=== PATIENT | female | born 1975 | race Caucasian/White ===

== ENCOUNTER 2018-11-25 05:14 | Inpatient (IN) ==
--- NOTE | 2018-10-28 12:58 | PAT Medication Instructions ---
Medication Instructions Date of Service October 28, 2018 Home Medications Calcium 600 + D(3) 1 cap PO BID aspirin 81 mg PO QAM lansoprazole [Prevacid] 30 mg PO DAILY PRN loratadine [Claritin] 10 mg PO DAILY PRN venlafaxine [Effexor XR] 150 mg PO QAM etodolac [Lodine] 500 mg PO BID metoprolol tartrate 25 mg PO BID ropinirole 0.25 mg PO HS ASK your surgeon for instructions etodolac [Lodine] 500 mg PO BID STOP taking 24 hours before surgery ropinirole 0.25 mg PO HS DO NOT take the morning of surgery Calcium 600 + D(3) 1 cap PO BID loratadine [Claritin] 10 mg PO DAILY PRN Take morning of surgery With a small sip of water, OTHERWISE NOTHING TO EAT OR DRINK AFTER MIDNIGHT: aspirin 81 mg PO QAM lansoprazole [Prevacid] 30 mg PO DAILY PRN (if needed) venlafaxine [Effexor XR] 150 mg PO QAM metoprolol tartrate 25 mg PO BID Take evening before surgery Calcium 600 + D(3) 1 cap PO BID metoprolol tartrate 25 mg PO BID Other Notes If you have any questions please call us at [phone] or [phone] or [phone] or [phone]
--- NOTE | 2018-10-29 14:42 | Anesthesiology Consultation ---
Date of Service October 29, 2018 Assessment & Plan (1) Encounter for pre-operative examination: - Cardio: 10/12/18: "low to intermediate risk" - S/P right femoral locking screw: 05/05/18: LMA#4 at [facility] - Okay to continue ASA perioperatively. Chart Review Chart Review: Acceptable Risk for Surgery and Patient seen in Pre Admission Testing Teaching & Discussion Pre-Anesthesia Teaching/Discussion Notes: Instructed NPO after midnight before surgery,except medications with 15 cc of water. Medication instructions provided according to the PAT guidelines. History Surgery Operation Date: 11/25/18 07:00 Proposed Procedures p Right Total Knee Arthroplasty, - Lc Lopez MD s Removal IM Pete of Right Femur - Lc Lopez MD Height/Weight Height: 5 ft 8 in Weight: 86.6 kg Allergies Allergy/AdvReac Type Severity Reaction Status Date / Time cefazolin Allergy Intermediate HIVES Verified 10/28/18 07:46 codeine Allergy Intermediate ITCHING - Verified 10/28/18 07:46 CAN USE PERCOCET W/O RXN vancomycin Allergy Intermediate "ITCHY Verified 10/28/18 07:46 Head" Medications Home Medications Medication Instructions Recorded Confirmed Last Taken Calcium 600 + D(3) 1 cap PO BID 04/03/18 10/28/18 Unknown aspirin 81 mg PO QAM 04/03/18 10/28/18 04/30/18 lansoprazole [Prevacid] 30 mg PO DAILY PRN 04/03/18 10/28/18 Unknown loratadine [Claritin] 10 mg PO DAILY PRN 04/03/18 10/28/18 Unknown venlafaxine [Effexor XR] 150 mg PO QAM 04/03/18 10/28/18 05/04/18 etodolac [Lodine] 500 mg PO BID 10/28/18 10/28/18 Unknown metoprolol tartrate 25 mg PO BID 10/28/18 10/28/18 Unknown ropinirole 0.25 mg PO HS 10/28/18 10/28/18 Unknown Past Medical History Medical History Anxiety Attention deficit disorder (ADD) Deep vein thrombosis LLE DVT (2016) - S/P XARELTO X 6 MONTHS - FELT 2/2 OCP/SMOKING Degenerative disc disease Depression Diverticular disease Endometriosis GERD (gastroesophageal reflux disease) CONTROLLED Hepatitis C Hiatal hernia History of hyperlipidemia History of hypertension History of migraine Hx of tear of meniscus of knee joint LEFT KNEE IBS (irritable bowel syndrome) Osteoarthritis Post traumatic stress disorder Scoliosis Exercise / Class Metabolic Activity II 4-5 Yardwork/Stairs/Walk up hill Past Family History Family History Mother Family history of diabetes mellitus Grandmother Family history of diabetes mellitus Grandmother Family hx of colon cancer Past Surgical History Surgical History History of arthroscopy LEFT KNEE - MENISCUS REPAIR History of bilateral tubal ligation History of cholecystectomy History of colonoscopy History of hip surgery LEFT HIP - AN AND THEN AGAIN AT AGE 21 History of knee surgery RIGHT KNEE History of total hip arthroplasty LEFT Status post osteotomy RLE; HARDWARE PRESENT Past Anesthesia History No Hx of Anesthesia Complications and No Family Hx of Anesthesia Complications History of PONV No Hx of PONV and No Hx of Motion Sickness Social History Smoking Status: Current every day smoker tobacco type: cigarettes Smoking cigarettes per day: 1/2-1 PPD X30 YEARS Do You Dip or Chew Tobacco: No Hx Alcohol Use: No Alcohol Intake Frequency Comment: 0 Hx Substance Use: No substance use type: does not use Review of Systems Patient denies chest pain, shortness of breath, dyspnea on exertion, cough, wheezing, palpitations. Physical Exam Vital Signs VITALS BP 124/90 P 76 TEMP 98.2 SP02 100%RA RESP 18 PHYSICAL Full neck and c-spine range of motion. Full TMJ range of motion. TMD 3 finger breaths Mallampati Score 2 Dentition: poor dentition, lower front teeth present/rotted, upper front teeth chipped Lungs: clear throughout to auscultation Cardiac: regular rate and rhythm, no murmurs noted Spine: normal Carotid arteries: negative bruit Extremities: no edema Testing Laboratory Results 10/29/18 14:41 10/29/18 14:41 10/29/18 10/29/18 14:41 Unknown PT 10.0 INR 1.0 APTT 24.2 Urine Color Yellow Urine Appearance Clear Urine pH 5.5 Ur Specific Peggs 1.010 Urine Protein Negative Urine Glucose (UA) Negative Urine Ketones Negative Urine Nitrite Negative Ur Leukocyte Esterase 2+ H Urine WBC (Auto) 10-30 H Urine RBC (Auto) 0-4 U Hyaline Cast (Auto) 1-5 U Epithel Cells (Auto) >30 H Urine Bacteria (Auto) Negative 10/29/18 T&S A-Ab- Electrocardiogram Date: 10/12/18 SR at 83bpm. Chest X-Ray Date: 10/28/18 Findings: + NAD Echocardiogram Date: 04/28/18 EF 55%. No RWMA. Mild MR. Trace to mild AI. Stress Test Date: 04/28/18 Type: exercise Negative exercise graded test for ischemia. 87% MPHR. Sinus tachy with stress with no significant ST/T change. 10.1 METS.
[2018-10-29 15:22] LABS: Basophils # (auto) 0.01 K/uL (0-0.2); Basophils % (auto) 0.1 %; Eosinophils # (auto) 0.09 K/uL (0-0.5); Eosinophils % (auto) 1.1 %; Hematocrit (blood only) 40.6 % (37-47); Hemoglobin 13.5 g/dL (12.0-16.0); Immature Granulocytes # (auto) 0.01 K/uL (0.00-0.02); Immature Granulocytes % (auto) 0.1 %; Lymphocytes # (auto) 2.42 K/uL (1.2-3.4); Lymphocytes % (auto) 30.5 %; Mean Corpuscular Hgb Conc 33.3 g/dL (32-36); Mean Corpuscular Volume 91.4 fL (80-100); Mean Platelet Volume 9.7 fL (7.4-10.4); Monocytes # (auto) 0.71 K/uL (0.11-0.59); Neutrophils # (auto) 4.69 K/uL (1.4-6.5); Neutrophils % (auto) 59.2 %; Platelet Count 332 K/uL (130-400); RDW Coefficient of Variation 14.2 % (11.5-14.5); RDW Standard Deviation 47.5 fL (36.4-46.3); Red Blood Count 4.44 M/uL (4.2-5.4); White Blood Count 7.93 K/uL (4.8-10.8)
[2018-10-29 15:30] LABS: BUN Creatinine Ratio 10.8 (10-20); Calcium 9.2 mg/dl (8.5-10.1); Creatinine Clr Calc Pharmacy 101.9 ml/min; Est GFR (African American) 101.6; Est GFR (Non-African American) 87.6; Potassium 3.8 mmol/L (3.5-5.1)
[2018-10-29 15:34] LABS: Partial Thromboplastin Ratio 0.9; Partial Thromboplastin Time 24.2 Seconds (21.0-31.0)
[2018-10-29 15:34] LABS: Appearance Urine Clear (Clear); Bacteria Urine Automated Negative (Negative); Bilirubin Urine Negative (Negative); Blood Urine Negative (Negative); Color Urine Yellow; Epithelial Cell Urine Auto >30 /lpf (0-5); Glucose Urine UA Negative (Negative); Ketones Urine Negative (Negative); Leukocyte Esterase Urine 2+ (Negative); Nitrite Urine Negative (Negative); Protein Urine Negative (Negative); RBC Urine Automated 0-4 /hpf (0-4); Urobilinogen Urine Negative (Negative); pH Urine 5.5 (4.5-7.5)
--- NOTE | 2018-11-15 17:34 | History and Physical Report ---
DATE OF ADMISSION: 11/25/2018 CHIEF COMPLAINT: Right knee pain. HISTORY OF PRESENT ILLNESS: This 43-year-old white female presents to the office with complaints of severe right knee pain that has been ongoing for several years. It has become worse over the last 6 months. She has known DJD. She previously had a right femur osteotomy in 2009. She subsequently had a distal screw removal from the right femur. She also had a proximal screw removal from the right femur on 04/14/2018. Pain is worse with ambulation. It is affecting her ADLs. She has a history of previous congenital hip dysplasia and degenerative joint disease in both knees. There is a history of numerous surgeries on both lower extremities. She elects to proceed with removal of the IM eric and total knee arthroplasty in hopes of alleviating her pain. Recent radiographic imaging has been obtained. No numbness or tingling. PAST MEDICAL HISTORY: Significant for hypertension, asthma, sleep apnea, anxiety, depression, ADHD, history of DVT in March 2017, osteoarthritis, upper and lower back problems, acid reflux, history of hiatal hernia, irritable bowel syndrome, history of hepatitis, and endometriosis. PREVIOUS SURGERIES: Proximal femur screw removal on 04/14/2018, distal screw removal right femur, left total hip arthroplasty in 2003, right femur osteotomy in 2009, left knee arthroscopy, lateral release, with meniscectomy in 2010, excision of medial patellar avulsion fracture and repair of MPFL in 2010, right knee surgery at age 11, cholecystectomy, hysterectomy, tubal ligation. SOCIAL HISTORY: The patient smokes a pack a day. No ETOH use. No recreational drug use. Single. Lives with her children. ALLERGIES: KNOWN ALLERGY TO ANCEF, WHICH CAUSED HIVES; VANCOMYCIN, WHICH CAUSED SEVERE ITCHING; AND CODEINE, WHICH ALSO CAUSED HIVES. SHE DOES FINE WITH PERCOCET. CURRENT MEDICATIONS: Effexor 75 mg p.o. daily, etodolac 500 mg p.o. b.i.d., loratadine 10 mg p.o. daily, metoprolol 25 mg p.o. daily, metronidazole 500 mg p.o. q. 12 hours, ropinirole 0.5 mg p.o. daily. FAMILY HISTORY: Significant for cancer, diabetes, and heart disease. REVIEW OF SYSTEMS: A total 10 systems are reviewed and are significant for above-stated conditions only. PHYSICAL EXAMINATION: GENERAL: Well-developed, well-nourished, middle-aged white female in no acute distress. Sitting in a chair. Alert and oriented. Looks older than her stated age. SKIN: Warm and dry with good turgor. No rashes or lesions. Scars present on both knees. Weight is approximately 190 pounds. HEENT: Normocephalic, atraumatic. EYES: PERRLA, EOMI. Nares patent bilaterally without turbinate enlargement. Oropharynx without erythema or exudate. No lesions noted. Uvula midline. Oral mucosa moist. Poor dentition. Several teeth are missing. Several chipped teeth as well. LUNGS: Clear to auscultation bilaterally. No crackles, rhonchi, or wheezing. Good air movement. HEART: RRR. No MGR. ABDOMEN: Bowel sounds present x4, soft, nontender. No organomegaly. No masses. Mild obesity. MUSCULOSKELETAL: Right knee evaluation reveals no intra-articular effusion. She has full terminal extension. Flexion to only around 100 degrees. There is pain with palpation of the lateral joint line as well as the peripatellar area. Crepitus palpable with motion. Stable collateral ligaments. No defect in the patellar tendon or quadriceps tendon. Ambulatory with an antalgic gait. Valgus alignment. NEUROLOGIC: Gross sensation is intact across both lower extremities by soft touch. Peripheral pulses are 2+. Cranial nerves II-XII are intact. DATA: Radiographic imaging previously obtained shows severe DJD of her right knee. She does have a retained IM eric. Periarticular osteophytes, subchondral sclerosis, and joint space narrowing are all present. IMPRESSION: Right knee osteoarthritis with retained IM eric. PLAN: Postoperative prescriptions for Percocet and Coumadin will be provided at discharge from the hospital. Anticipate discharge to home with outpatient services or home health services. Rolling walker prescription has been provided. Preoperative lab work, EKG, and chest x-ray have been ordered. Medical clearance has been requested from both her PCP as well as her hand spring repairer, Dr. Dent. Informed written consent will be obtained the morning of surgery.
[2018-11-25] MEDS ORDERED: LACTATED RINGER'S 1,000 ML IV SCH (06:00)
[2018-11-25] MEDS ORDERED: ROPIVACAINE 0.5% HCL/PF 150 MG, BUPIVACAINE 0.5% MPF 30 ML, EPINEPHrine 0.15 MG, Ketoro... INFIL SCH (06:00)
[2018-11-25] MEDS ORDERED: CLINDAMYCIN 900 MG / 50ML D5W IV SCH (06:00)
[2018-11-25] MEDS ORDERED: levoFLOXacin 500 MG TAB PO ONE (06:00)
[2018-11-25] MEDS ORDERED: TRANEXAMIC ACID 1,000 MG x 1 **For Topical Use TOP SCH (06:00)
[2018-11-25] MEDS ORDERED: LR 500ML BOLUS, THEN 15ML/HR IV SCH (06:00)
[2018-11-25] MEDS ORDERED: BUPIVACAINE/EPINEPHRINE 0.5% MPF 1:200,000 30 ML VIAL ONE (06:21)
[2018-11-25] MEDS ORDERED: DEXAMETHASONE SOD INJ 4 MG/ML VIAL ONE (06:22)
[2018-11-25] MEDS ORDERED: BUPIVACAINE 0.5 % 5 MG/1 ML PF 10ML VIAL ONE (06:23)
[2018-11-25] MEDS ORDERED: ORTHO JOINT ANESTHETIC ONE (06:34)
--- NOTE | 2018-11-25 06:37 | History & Physical Bridge Note ---
Date of Service November 25, 2018 History & Physical Bridge Note I have examined the patient, reviewed the History & Physical and in the interval since the performance of the History & Physical I have noted the following changes of clinical significance: consent obtained.no changes noted
[2018-11-25] MEDS ORDERED: MIDAZOLAM HCL 1 MG/ML 2ML VIAL ONE ×2 (06:40→06:56)
[2018-11-25] MEDS ORDERED: ePHEDrine sulfate 50 MG/ML AMP IV PRN (07:03)
[2018-11-25] MEDS ORDERED: ATROPINE SULFATE 0.1 MG/ML 10ML SYR IV PRN (07:03)
[2018-11-25] MEDS ORDERED: fentaNYL citrate 100 MCG/2 ML VIAL IV PRN (07:03)
[2018-11-25] MEDS ORDERED: ONDANSETRON INJ 2 MG/ML 2 ML VIAL IV PRN ×2 (07:03→10:54)
[2018-11-25] MEDS ORDERED: KETAMINE HCL INJ 50 MG/ML 10 ML VIAL ONE (07:12)
[2018-11-25] MEDS ORDERED: LIDOCAINE HCL 2% 2 ML VIAL/AMP(20MG/ML) INFIL ONE (07:35)
[2018-11-25] MEDS ORDERED: PROPOFOL IV EMULSION 10 MG/ML 20 ML VIAL IV ONE ×3 (07:35→08:35)
--- NOTE | 2018-11-25 08:40 | Post Operative Brief Note ---
Immediate Post Op Note v1 Date of Surgery November 25, 2018 Pre & Post Diagnosis Operation Date: 11/25/18 07:00 Pre-Op Diagnosis: Right Knee Osteoarthritis with Retained Intramedullary Pete Right Femur Post-Op Diagnosis: Right Knee Osteoarthritis with Retained Intramedullary Pete Right Femur Procedure Operation Date: 11/25/18 07:00 Actual Procedures p Right Total Knee Arthroplasty with Removal of Intramedullary Pete Right Femur(Right) - Lc Lopez MD Surgeon [facility]c [facility] Estimated Blood Loss 75 Findings Consistent with Post-Op Diagnosis
--- NOTE | 2018-11-25 09:00 | Operative Report ---
Post Operative Report Pre & Post Diagnosis Operation Date: 11/25/18 07:00 Pre-Op Diagnosis: Right Knee Osteoarthritis with Retained Intramedullary Pete Right Femur Post-Op Diagnosis: Right Knee Osteoarthritis with Retained Intramedullary Pete Right Femur Procedure Operation Date: 11/25/18 07:00 Actual Procedures p Right Total Knee Arthroplasty with Removal of Intramedullary Pete Right Femur(Right) - Lc Lopez MD Surgeon HERMELINDA Lopez MD [employer] Estimated Blood Loss 75 Findings Consistent with Post-Op Diagnosis Specimens see operative report Drains none Complications none Disposition Accompanied Patient To Recovery: Yes Disposition: Recovery Room Indications This 43-year-old white female presented to the office with complaints of intractable right knee pain. She previously had a femoral osteotomy due to congenital issues. The knee pain was gradual but became worse with time. She elected to proceed with further surgical intervention after being educated about potential risks and outcomes. Preoperative imaging was obtained. She had already tried conservative care measures without improvement. Description of Procedure Patient was administered a spinal anesthetic and then was taken to the operating room where she was given sedation. She was prepped and draped in the usual sterile fashion. Please see Dr. Lopez's operative report for specifics of the procedure. I was present for the entire case from initial patient positioning through final wound closure. Assistance was provided in tissue retraction, hemostasis, hardware removal, trial implant placement, final implant placement, and final wound closure. Patient was taken to the recovery room in satisfactory condition. I attest to the content of the Intraoperative Record and any orders documented therein. Any exceptions are noted below.
--- NOTE | 2018-11-25 09:03 | Operative Report ---
DATE OF OPERATION: 11/25/2018 SURGEON: Lc Lopez MD PICK UP ATTENDANT: Damon Knowles PA-C. No resident or fellow available. PREOPERATIVE DIAGNOSIS: Status post distal femoral osteotomy with implanted eric and osteoarthritis, severe, right knee. POSTOPERATIVE DIAGNOSIS: Status post distal femoral osteotomy with implanted eric and osteoarthritis, severe, right knee. OPERATION PERFORMED: 1. Removal of intramedullary eric. 2. Cemented right total knee replacement. PERIOPERATIVE SITUATION: Medically cleared female with intractable knee pain who had an osteotomy to salvage her knee that lasted roughly 10 years. At this point in time, now wants to have a knee replacement based on increasing pain. SUMMARY OF IMPLANTS: Size 3 right femur, size 3 mobile bearing tray, size 38 oval dome 3 peg patella, size 3 tibial insert 3 x 12.5 posterior cruciate substituting, 2 bags of Palacos G cement. Pathology pending on bone. ESTIMATED BLOOD LOSS: 75 mL. DVT prophylaxis with Coumadin. PROCEDURE IN DETAIL: The patient was properly identified, site verified, consent verified. Antibiotics confirmed as being given. The right lower extremity was prepped and draped in usual routine fashion. There was a small irritated area in front of her knee that did not look infected, so indicated to continue to proceed. It was more of a bite with some irritation. Old incision was utilized and extended slightly distally. Parapatellar arthrotomy performed. Synovectomy completed. Scar tissue released. Old sutures were removed. The retractors were then placed after the synovectomy and the menisci resected. The distal femur was then exposed. The box area was then cut with an osteotome to find the eric, which was all overgrown with bone. This was then curetted out. The covering screw removed and then the SLAP hammer applied and then the eric removed without difficulty. A distal femoral cut was then made at 14 mm. The femur was then sized between a 4 and a 3, it was measured 4, cut 3. The extension gap and flexion gaps were excellent after the tibia was cut 4 mm. This was checked. The posterior capsule was then injected with 2 syringes of Orthomix to roughly 20 mL. The box cut was then finalized and the trial 3 fit well. The tibia was then broached and reamed to a 3 and the size 3 fit well. The 10 and 12.5 spacers were tried. The 10 gave a little hyperextension. So we went to the 12.5. The patella was then resected and a 38 trial fit well and tracked well. There was a roughly 14 to 15 mm of patella left. The implants were then removed after the Orthomix was injected. TXA applied for 2 minutes. The wound was then irrigated and then the permanent cemented into position starting with the tibia and going to the femur and then the patellar button. After 12 minutes, the tourniquet deflated. Minor bleeding points with controlled with electrocautery. After 14 minutes, the knee flexed. No major bleeding encountered. The trial spacer was removed. The knee was irrigated. No cement removal was required. The permanent liner was then seated. The knee reduced and then closed with #2 Vicryl, 2-0 Vicryl, and stainless steel clips. Appropriate dressing applied. The patient transferred to recovery room in satisfactory condition having tolerated the procedure well. I attest to the content of the Intraoperative Record and any orders documented therein. Any exception s are noted below.
--- NOTE | 2018-11-25 09:10 | XRay Report ---
XR knee RT 2V routine CLINICAL HISTORY: Surgical Post Op COMPARISON: Right femur radiographs October 29, 2018. FINDINGS: Alignment of the total right knee arthroplasty is anatomic. There is no periprosthetic fra cture or unexpected radiopaque foreign body. There are skin rylee. An old, healed distal right femo ral fracture is noted. The right femoral intramedullary eric has been removed since exam of October 29. IMPRESSION: Expected findings following total right knee arthroplasty. Electronically signed by: Nicola Davis M.D. 11/25/2018 9:09 AM
--- NOTE | 2018-11-25 09:22 | Anesthesiology Progress Note ---
Date of Service November 25, 2018 Anesthesia Post Procedure Vital Signs Vital Signs: Temp Pulse Resp BP Pulse Ox 11/25/18 09:10 36.1 C L 74 14 127/74 100 11/25/18 09:00 36.1 C L 75 11 L 126/77 100 11/25/18 08:50 36.1 C L 74 12 120/67 99 11/25/18 05:47 36.6 C 65 18 144/89 H 98 Pain Intensity Right Knee: Pain Intensity: 0 Lower Back: Pain Intensity: 5 Transfer of Care Handoff Completed per policy Notes Mental Status: alert / awake / arousable Patient Amnestic to Procedure: Yes Nausea / Vomiting: adequately controlled Pain: adequately controlled Airway Patency, RR, SpO2: stable & adequate BP & HR: stable & adequate Hydration State: stable & adequate Neuraxial Anesthesia: was administered and sensory block is resolving Anesthetic Complications: no major complications apparent and Pt Satisfied with anesthetic care
[2018-11-25] MEDS ORDERED: DiphenhydrAMINE HCL 50 MG/ML VIAL IV PRN (10:54)
[2018-11-25] MEDS ORDERED: SODIUM CHLORIDE 0.9% 1000ML 1,000 ML IV SCH (10:54)
[2018-11-25] MEDS ORDERED: NALOXONE HCL 0.4 MG/1 ML VIAL/CARP IV PRN (10:54)
[2018-11-25] MEDS ORDERED: MAGNESIUM HYDROXIDE SUSP 30 ML UDC PO PRN (10:54)
[2018-11-25] MEDS ORDERED: PANTOprazole 40 MG TAB PO PRN (10:54)
[2018-11-25] MEDS ORDERED: LORATADINE 10 MG TAB PO PRN (10:54)
[2018-11-25] MEDS ORDERED: KETOROLAC 30 MG/ML VIAL IV PRN (10:54)
[2018-11-25] MEDS ORDERED: HYDROmorphone INJ 0.5 MG/0.5 ML SYR IV PRN (10:54)
[2018-11-25] MEDS ORDERED: ALUMINUM/MAGNESIUM SUSP 30 ML UDC PO PRN (10:54)
[2018-11-25] MEDS ORDERED: BISACODYL 10 MG SUPP PR PRN (10:54)
[2018-11-25] MEDS ORDERED: METOCLOPRAMIDE HCL INJ 5 MG/ML 2 ML VIAL IV PRN (10:54)
[2018-11-25] MEDS: NICOTINE 21 MG/24 HR TDSY TD SCH (12:17)
[2018-11-25] MEDS: METOPROLOL TARTRATE 25 MG TAB PO SCH ×2 (12:18→20:12)
[2018-11-25] MEDS: MULTIVITAMIN TAB PO SCH (12:18)
[2018-11-25] MEDS: VENLAFAXINE HCL XR 150 MG CAPXR PO SCH (12:18)
[2018-11-25] MEDS: ASPIRIN 81 MG ECTAB PO SCH (12:19)
[2018-11-25] MEDS: DOCUSATE SODIUM 100 MG CAP PO SCH ×2 (12:19→20:13)
[2018-11-25] MEDS: CALCIUM 600MG + VIT D 400 IU TAB PO SCH ×2 (12:19→20:13)
--- NOTE | 2018-11-25 12:31 | Progress Note ---
DATE: 11/25/2018 SUBJECTIVE: Postop check, status post right total knee replacement. The patient is resting comfortably in bed. Pain is well managed. She denies any chest pain, shortness of breath, fever, chills, nausea, vomiting or headache. OBJECTIVE: Vital signs are stable. She is afebrile. Neurovascular check femoral sciatic nerve is normal. Wound dressing is clean, dry and intact. Postop x-rays look excellent. ASSESSMENT: Overall, doing well. She is requesting a nicotine patch for tobacco addiction. That will be ordered. We will give one more dose of p.o. Levaquin this evening. Will be discharged on azithromycin 500 mg p.o. daily for 5 days.
--- NOTE | 2018-11-25 12:41 | Discharge Summary ---
CHIEF COMPLAINT: Right knee pain. HISTORY OF PRESENT ILLNESS: A 43-year-old female admitted for elective right total knee replacement, postop injury, osteoarthritis, had a distal femoral osteotomy performed roughly 9 years ago and did well with that until most recently, at this point in time wants to have the knee replaced. PAST MEDICAL HISTORY: Remarkable for hypertension, asthma, sleep apnea, anxiety, depression, ADHD, DVT, osteoarthritis of her lower back problems, acid reflux, history of hiatal hernia, irritable bowel syndrome, history of hepatitis and endometriosis. PAST SURGICAL HISTORY: Previous surgeries include 2003 left hip arthroplasty, 2010 osteotomy of her femur, intramedullary eric placement, MPFL surgery on the right knee, cholecystectomy, hysterectomy, tubal ligation. SOCIAL HISTORY: Reveals that she smokes, uses social alcohol. No recreational drug use. She is single, lives with her children. ALLERGIES: ANCEF CAUSES HIVES. VANCOMYCIN, SEVERE ITCHING. CODEINE, HIVES. Apparently, has no issues with Percocet. PREADMISSION MEDICATIONS: Include Effexor, etodolac, loratadine, metoprolol, metronidazole and ropinirole. She will hold any antiinflammatory such as etodolac and will use p.r.n. pain medications. Please see prescription. We will have Coumadin to keep INR 1.8-2.2. Discharge on 4 mg if INR is 1.5 or less. Adjust as needed if above. FAMILY HISTORY: Remarkable for cancer, diabetes, heart disease. REVIEW OF SYSTEMS: Noncontributory. ASSESSMENT: Postop x-rays look excellent. ASSESSMENT: Doing well overall status post right total knee replacement. Potential discharge tomorrow morning. Case management to assess and prepare for discharge.
[2018-11-25] MEDS: ORTHO WARFARIN NOMOGRAM SCH (14:33)
--- NOTE | 2018-11-25 15:01 | Orthopedic Progress Note ---
Date of Service November 25, 2018 Assessment & Plan (1) S/P total knee replacement using cement: PT/OT Case Management eval DVT prophy with Coumadin per nomagram and TEDs Ice with EZ wrap WBAT with immobilizer and walker assistance Pain control with PO meds Will follow in AM and change dressing Plan on discharge home tomorrow with home health services. Subjective 43 yo F s/p Right total knee arthroplasty this AM. Nursing staff states that moni ziegler's dressing is completely saturated with blood. Pt states that her pain is well controlled with the PO meds. She denies CP, SOB, nausea, vomiting, fever, chills, sweats or lethargy. Wonders if it would be possible to change her dressing. Review of Systems Review of Systems: All systems reviewed & are unremarkable except as noted in HPI & below Physical Exam Physical Exam: Right knee: post op dressing completely saturated with blood. After removal mild amount of blood oozing from proximal aspect of incision site. Wound compressed with sterile 4x4 and bleeding stopped. New bulky dressing applied. Otherwise calf soft and supple. Able to dorsi/plantar flex foot. Appropriated motor/sensory function of toes/feet. Quad not yet firing and unable to perform SLRT. Results & Data Vital Signs (Past 12 Hours) Vital Signs Temp Pulse Resp BP Pulse Ox 11/25/18 13:03 66 16 116/72 11/25/18 12:11 36.5 C 64 16 130/81 98 11/25/18 11:23 67 16 122/75 97 11/25/18 10:40 36.8 C 65 16 140/82 99 11/25/18 10:30 36.8 C 73 17 131/85 98 11/25/18 10:20 80 24 126/73 98 11/25/18 10:10 71 14 117/80 97 11/25/18 10:00 71 14 125/75 98 11/25/18 09:50 71 14 126/82 97 11/25/18 09:40 36.1 C L 70 12 126/77 98 11/25/18 09:30 36.1 C L 69 13 125/82 97 11/25/18 09:20 36.1 C L 70 13 126/83 98 11/25/18 09:10 36.1 C L 74 14 127/74 100 11/25/18 09:00 36.1 C L 75 11 L 126/77 100 11/25/18 08:50 36.1 C L 74 12 120/67 99 11/25/18 05:47 36.6 C 65 18 144/89 H 98
[2018-11-25] MEDS: ACETAMINOPHEN 500 MG TAB PO SCH ×2 (15:05→21:19)
[2018-11-25] MEDS: OXYCODONE HCL IR 5 MG TAB (IMMEDIATE RELEASE) PO PRN ×3 (15:06→23:33)
[2018-11-25] MEDS ORDERED: WARFARIN SOD 5 MG TAB PO SCH (16:00)
[2018-11-25] MEDS: CLINDAMYCIN 600 MG in DEXTROSE 5% 50 ML IV SCH ×2 (16:03→23:33)
[2018-11-25] MEDS ORDERED: levoFLOXacin 500 MG TAB PO SCH (18:00)
[2018-11-25] MEDS: FERROUS GLUCONATE 324 MG TAB PO SCH (18:40)
[2018-11-25] MEDS ORDERED: SENNA 8.6 MG TAB PO SCH (21:00)
[2018-11-25] MEDS ORDERED: ROPINIROLE HCL 0.25 MG TABLET PO SCH (21:00)
[2018-11-26] MEDS: ACETAMINOPHEN 500 MG TAB PO SCH ×2 (05:48→13:31)
[2018-11-26 06:30] LABS: Hemoglobin 9.8 g/dL (12.0-16.0); Mean Corpuscular Hgb Conc 32.7 g/dL (32-36); Mean Corpuscular Volume 91.7 fL (80-100); Mean Platelet Volume 9.7 fL (7.4-10.4); Platelet Count 224 K/uL (130-400); RDW Coefficient of Variation 14.2 % (11.5-14.5); RDW Standard Deviation 47.3 fL (36.4-46.3); Red Blood Count 3.27 M/uL (4.2-5.4); White Blood Count 12.97 K/uL (4.8-10.8)
[2018-11-26 06:41] LABS: INR 1.2 (0.9-1.1); Prothrombin Time 12.2 Seconds (9.0-12.0)
[2018-11-26 07:01] LABS: BUN Creatinine Ratio 16.7 (10-20); Calcium 8.5 mg/dl (8.5-10.1); Creatinine Clr Calc Pharmacy 118.7 ml/min; Est GFR (Non-African American) 106.1; Potassium 3.8 mmol/L (3.5-5.1)
--- NOTE | 2018-11-26 07:36 | Progress Note ---
DATE: 11/26/2018 SUBJECTIVE: Postop check status post right total knee replacement. The patient is doing well. Slept well. She states she slept very well. She denies any chest pain, shortness of breath, fever, chills, nausea, vomiting, or headache. OBJECTIVE: Vital signs are stable. She is afebrile. Neurovascular check, femoral sciatic nerve is normal. Had to reinforce dressing at the top of the wound likely just based on the amount of flexion and poor dressing coverage at that top of the wound. Please make sure the wound is fully dressed and very compressed with next wound change which is today prior to discharge. Please make sure it goes well above and well below the incision. INR is 1.2. Discharged on 4 mg of Coumadin daily. Check INR on Friday. ASSESSMENT AND PLAN: Doing well status post right total knee replacement. She is fully weightbearing and has been out of bed. At this point in time, will discharge to home on 4 mg of Coumadin, good bulky dressing change for the next 3-4 days.
[2018-11-26] MEDS ORDERED: dexAMETHasone 10 MG in SYRINGE 0 ML IV SCH (08:00)
[2018-11-26] MEDS: METOPROLOL TARTRATE 25 MG TAB PO SCH (08:35)
[2018-11-26] MEDS: MULTIVITAMIN TAB PO SCH (08:35)
[2018-11-26] MEDS: DOCUSATE SODIUM 100 MG CAP PO SCH (08:35)
[2018-11-26] MEDS: VENLAFAXINE HCL XR 150 MG CAPXR PO SCH (08:35)
[2018-11-26] MEDS: ASPIRIN 81 MG ECTAB PO SCH (08:36)
[2018-11-26] MEDS: CALCIUM 600MG + VIT D 400 IU TAB PO SCH (08:36)
[2018-11-26] MEDS: FERROUS GLUCONATE 324 MG TAB PO SCH (08:37)
[2018-11-26] MEDS: NICOTINE 21 MG/24 HR TDSY TD SCH (08:37)
[2018-11-26] MEDS: OXYCODONE HCL IR 5 MG TAB (IMMEDIATE RELEASE) PO PRN ×2 (08:40→12:42)
--- NOTE | 2018-11-26 10:03 | Orthopedic Progress Note ---
Date of Service November 26, 2018 Assessment & Plan (1) S/P total knee replacement using cement: PT/OT this AM Case Management eval DVT prophy with Coumadin and TEDs x 6 wks Goal INR 1.8-2.2: Currently 1.2 so will discharge on 4 mg of Coumadin daily Recheck INR Friday Ice with EZ wrap WBAT with immobilizer and walker assistance Pain control with PO meds Bulky compressive dressing applied Plan on discharge home today with home health services. Follow up at [facility] as previously scheduled. Subjective 43 yo F day 1 s/p Right total knee arthroplasty. Patient is doing very well today, stating that she is ready to go home. Pt states that her pain is well controlled with the PO meds. She denies CP, SOB, nausea, vomiting, fever, chills, sweats or lethargy. Patient states that she would like to talk with case management about dressing changes for next several days. She does not feel that her family will be able to do it. Review of Systems Review of Systems: All systems reviewed & are unremarkable except as noted in HPI & below Physical Exam Physical Exam: Right Knee: Dressing saturated with blood. New Bulky compressive dressing applied. Incision site looks good with rylee in place. + Fluctuance but no active drainage at this time. Able to perform SLRT. Knee ROM 0-90 degrees. Quad atrophy with strength 3.5-5. No ecchymosis or warmth. NV intact. Calf soft and supple. Periph pulses easily palpable. Cap refill < 2 seconds. Results & Data Vital Signs (Past 12 Hours) Vital Signs Temp Pulse Resp BP Pulse Ox 11/26/18 07:58 37.0 C 62 16 115/68 98 11/26/18 03:34 36.7 C 86 14 123/68 98 11/25/18 22:45 36.7 C 66 14 122/76 98 Laboratory Results 11/26/18 11/26/18 11/26/18 Range/Units 06:08 06:08 06:08 WBC 12.97 H (4.8-10.8) K/uL RBC 3.27 L (4.2-5.4) M/uL Hgb 9.8 L (12.0-16.0) g/dL Hct 30.0 L (37-47) % MCV 91.7 (80-100) fL MCH 30.0 (25-34) pg MCHC 32.7 (32-36) g/dL RDW Std Deviation 47.3 H (36.4-46.3) fL RDW Coeff of Damian 14.2 (11.5-14.5) % Plt Count 224 (130-400) K/uL MPV 9.7 (7.4-10.4) fL PT 12.2 H (9.0-12.0) Seconds INR 1.2 H (0.9-1.1) Sodium 140 (136-145) mmol/L Potassium 3.8 (3.5-5.1) mmol/L Chloride 109 H (98-107) mmol/L Carbon Dioxide 29 (21-32) mmol/L Anion Gap 2.0 L (3-11) BUN 12 (7-18) mg/dl Creatinine 0.70 (0.6-1.2) mg/dl Est Cr Clr Drug Dosing 118.7 ml/min Est GFR ( Amer) 123.0 Est GFR (Non-Af Amer) 106.1 BUN/Creatinine Ratio 16.7 (10-20) Glucose 127 H (70-99) mg/dl Calcium 8.5 (8.5-10.1) mg/dl
[2018-11-26] MEDS: ORTHO WARFARIN NOMOGRAM SCH (12:38)
[2018-11-26] MEDS ORDERED: WARFARIN SOD 5 MG TAB PO ONE (16:00)
== END 2018-11-26 15:09 | disposition home health service (06) | DRG 470 ==
LOC: ASU 05:14 → 3E 10:53